=== PATIENT | male | born 1995 | race Hispanic/Latino ===

== ENCOUNTER 2018-09-21 02:42 | Emergency (ER) | payer OTHER ==
[~2018-09-21] VITALS: Ht 175.3 cm; Wt 72.7 kg
[2018-09-21 02:42] VITALS: BP 132/77
[2018-09-21] MEDS ORDERED: IBUPROFEN 800 MG TAB PO ONE (05:30)
[2018-09-21] MEDS ORDERED: AMOXICILLIN 500 MG CAP PO ONE (05:30)
[2018-09-21] MEDS ORDERED: AMOX500C PO (05:30)
[2018-09-21] MEDS ORDERED: IBUP80TA PO (05:30)
== END 2018-09-21 05:36 | disposition home or self-care (01) ==
LOC: M ED 02:42
DX: J02.0 Streptococcal pharyngitis (principal)

== ENCOUNTER 2018-09-30 21:05 | Emergency (ER) | payer OTHER ==
[~2018-09-30] VITALS: Ht 175.3 cm; Wt 72.7 kg
[~2018-09-30 21:05] MED LIST: AMOX500C PO; IBUP80TA PO
[2018-09-30 22:03] LABS: APPEARANCE, URINE CLEAR (CLEAR); BACTERIA, URINE AUTO NEGATIVE (NEGATIVE); BILIRUBIN, URINE AUTO NEGATIVE (NEGATIVE); BLOOD, URINE BLOOD NEGATIVE (NEGATIVE); COLOR, URINE STRAW (YELLOW); GLUCOSE, URINE (UA) AUTO NEGATIVE (NEGATIVE); KETONE, URINE AUTO NEGATIVE (NEGATIVE); LEUKOCYTE ESTERASE, URINE AUTO NEGATIVE (NEGATIVE); NITRITE, URINE AUTO NEGATIVE (NEGATIVE); PROTEIN, URINE AUTO NEGATIVE (NEGATIVE); RBC, URINE AUTO 4 /HPF (0-3); SPECIFIC GRAVITY URINE AUTO 1.009 (1.002-1.035); SQUAMOUS EPITHELIAL CELL UR AU 0 /HPF (0-6); UROBILINOGEN, URINE AUTO 0.2 mg/dL (0.0-2.0); WBC, URINE AUTO 10 /HPF (0-3)
[2018-09-30] MEDS ORDERED: AZITHROMYCIN 250 MG TAB PO ONE ×2 (22:45→23:00)
[2018-09-30] MEDS ORDERED: cefTRIAXone SOD 250 MG VIAL (J0696) IM ONE (22:45)
[2018-09-30] MEDS ORDERED: CIPR-249 PO (22:48)
[2018-09-30 23:01] VITALS: BP 132/89
[2018-09-30 23:38] LABS: CHLAMYDIA DNA AMPLIFICATION NEGATIVE (NEGATIVE); GC DNA AMPLIFICATION NEGATIVE (NEGATIVE)
== END 2018-09-30 23:12 | disposition home or self-care (01) ==
LOC: M ED 21:05
DX: Z20.2 Contact with and (suspected) exposure to infections with a predominantly sexual mode of transmission (principal); N39.0 Urinary tract infection, site not specified; R30.0 Dysuria
CPT/HCPCS: 81001; 87491; 87591; 96372; 99284; J0696